=== PATIENT | female | born 1955 | race Caucasian/White ===

== ENCOUNTER → 2024-09-02 10:26 | Outpatient (REF) | payer MEDICARE, SELFPAY | LOC: HWRAD 10:26 | PROVIDERS: ATTENDING PHYSICIAN Obstetrics & Gynecology; FAMILY PHYSICIAN Internal Medicine Geriatric Medicine | DX: Z12.31 Encounter for screening mammogram for malignant neoplasm of breast (principal); Z78.0 Asymptomatic menopausal state; Z13.820 Encounter for screening for osteoporosis | CPT/HCPCS: 77063; 77067; 77080 ==